=== PATIENT | female | born 1985 | race Caucasian/White ===

== ENCOUNTER 2017-09-20 17:41 | Emergency (ER) | payer OTHER ==
[~2017-09-20] VITALS: Ht 170.2 cm; Wt 52.2 kg
[2017-09-20] MEDS ORDERED: AMPICILLIN SOD500 MG (18:17)
== END 2017-09-20 22:51 | disposition home or self-care (01) ==
LOC: ER 17:41
DX: S13.4XXA Sprain of ligaments of cervical spine, initial encounter (principal); V49.9XXA Car occupant (driver) (passenger) injured in unspecified traffic accident, initial encounter; Y93.89 Activity, other specified; Y92.488 Other paved roadways as the place of occurrence of the external cause; Y99.8 Other external cause status